=== PATIENT | female | born 1970 | race Hispanic/Latino ===

== ENCOUNTER 2023-03-25 12:16 | Emergency (ER) | payer SELFPAY ==
[2023-03-25] VITALS (8 sets, daily range): BP systolic 76–153; BP diastolic 56–119; PULSE 56; RESP 18; TEMP 36; O2SAT 87–100
--- NOTE | ~2023-03-25 | CT_ITS ---
EXAMINATION: CT abdomen pelvis w con DATE: 03/25/2023 14:53 INDICATION: Left abdominal pain. TECHNIQUE: Computed tomography (CT) of the abdomen and pelvis was performed with 100 mL Omnipaque 350 intravenous contrast. Automated exposure control and iterative reconstruction technique were employe d. The dose-length product was 403.01 mGy-cm. COMPARISON: None. FINDINGS: The visualized portions of the lung bases demonstrate minimal atelectasis. No pleural effus ion. The heart size is normal. No pericardial effusion. The liver, gallbladder, spleen, pancreas, adr enal glands, and kidneys are normal. There are no dilated loops of bowel. The appendix is not visuali zed. There are no pathologically enlarged lymph nodes. There is no free intraperitoneal fluid. There are chronic bilateral L5 pars defects. There is mild chronic anterior wedging of T10, T11, and T12 vertebral bodies. IMPRESSION: 1. No etiology for the patient's symptoms. Reviewed, dictated and finalized at location A.
[2023-03-25 14:02] LABS: Basophils Absolute Auto 0.1 K/mm3 (0.0-0.1); Eosinophils Absolute Auto 0.2 K/mm3 (0-0.3); Eosinophils Percent Auto 4.7 % (0-4.4); Hematocrit 40.8 % (37.0-47.0); Hemoglobin 13.2 g/dL (12.0-15.0); Lymphocytes Absolute Auto 1.97 K/mm3 (0.9-3.2); Lymphocytes Percent Auto 38.2 % (18.3-44.2); Mean Corpuscular HGB Conc 32.4 g/dl (32-36); Mean Corpuscular Hemoglobin 28.9 pg (26-34); Mean Corpuscular Volume 89.5 fl (80-100); Mean Platelet Volume 9.7 fl (7.4-10.4); Monocytes Absolute Auto 0.5 K/mm3 (0.1-0.6); Monocytes Percent Auto 9.5 % (2.6-8.5); Neutrophils Absolute Auto 2.4 K/mm3 (1.3-6.7); Neutrophils Percent Auto 46.6 % (45.5-73.1); Platelet Count Result 269 k/mm3 (150-375); Red Blood Count 4.56 M/mm3 (4.2-5.4); Red Cell Distribution Width 12.6 % (11.5-14.5); White Blood Count 5.2 K/mm3 (4.5-10.0)
[2023-03-25 14:12] LABS: Anion Gap 4 mmol/L (8-16); Carbon Dioxide 31 mmol/L (22-30); Chloride 104 mmol/L (98-107); Potassium 3.8 mmol/L (3.4-5.0); Sodium 139 mmol/L (137-145)
[2023-03-25 14:13] LABS: Alanine Aminotransferase 22 U/L (6-35); Albumin Level 4.5 g/dL (3.5-5.1); Alkaline Phosphatase 100 U/L (38-126); Aspartate Amino Transferase 29 U/L (14-36); Bilirubin,Total 0.5 mg/dL (0.2-1.3); Blood Urea Nitrogen 7 mg/dL (7-17); Calcium 9.2 mg/dL (8.4-10.2); Estimated CRCL calculation 99 ml/min; Estimated Glomerular Filt Rate > 60; Glucose 99 mg/dL (65-110); Lipase 86 U/L (23-300)
--- NOTE | 2023-03-25 14:13 | ECG_ITS ---
Measurements Intervals [place] Rate: 55 P: 34 SD: 141 QRS: 23 QRSD: 88 T: 37 QT: 449 QTc: 430 Interpretive Statements SINUS BRADYCARDIA CANNOT RULE OUT SEPTAL INFARCT, AGE INDETERMINATE ABNORMAL ECG NO PREVIOUS ECG AVAILABLE FOR COMPARISON Electronically Signed On 03-25-2023 14:27:44 CDT by Marshal Cooley D.O.
--- NOTE | 2023-03-25 14:25 | ED.GENADULT ---
HPI - General Adult General Chief complaint: Abdominal Pain Stated complaint: left side pain Time Seen by Provider: 03/25/23 12:58 Source: patient and manager it training Mode of arrival: ambulatory Limitations: no limitations History of Present Illness HPI narrative: This is a 53-year-old Lao-speaking female who presents to the ED with chief complaint of left upper quadrant pain beginning 3 days ago. She reports pain does not radiate. Denies flank pain. Denies any urinary symptoms. Reports it is worse in certain positions, states is very hard to lean or lie on the left side. She also reports some increased pain with breathing and exertion. Denies shortness of breath. Endorses occasional cough. Denies fevers, chills, LOC, headache. Reports abdominal surgical history of 3 different C-sections. She thinks that she may have her appendix out although she is unsure. Related Data Allergies Allergy/AdvReac Type Severity Reaction Status Date / Time No Known Allergies Allergy Mild Verified 03/25/23 12:38 Exam Narrative: GENERAL: Well-appearing, well-nourished, and in no acute distress. HEAD: Normocephalic, atraumatic. EYES: PERRLA and EOMI. ENT: Nares clear, no rhinorrhea or epistaxis. Mucous membranes moist. Oropharynx without tonsillar hypertrophy exudate or other lesions. NECK: Supple. No adenopathy or masses. CHEST: No respiratory distress. Clear to auscultation. No wheezes rales or rhonchi HEART: Regular rate and rhythm. No murmur heard. Normal peripheral pulses. ABDOMEN: Left upper and left lower quadrant tenderness present. Soft, nondistended, normal active bowel sounds. Negative Easley sign and negative McBurney's point. MSK: Normal range of motion. No edema. SKIN: Warm, dry, no rash. NEURO: Alert and oriented x3. No focal deficits. PSYCH: Normal mood and affect. Course Course Emergency Course: Reevaluation 1551: It is more evident that she has positional pain in that left side. She is tender in the left lower ribs and tenderness throughout the muscular distribution of the left flank. Less concern for any intra-abdominal or cardiopulmonary etiology Vital Signs Vital signs: Vital Signs Temperature 96.8 F L 03/25/23 12:31 Pulse Rate 56 L 03/25/23 12:31 Respiratory Rate 18 03/25/23 12:31 Blood Pressure 153/119 H 03/25/23 12:31 Pulse Oximetry 98 03/25/23 12:31 Oxygen Delivery Room Air 03/25/23 12:31 Temperature 96.8 F L 03/25/23 12:31 Pulse Rate 56 L 03/25/23 12:31 Respiratory Rate 18 03/25/23 12:31 Blood Pressure 127/66 03/25/23 15:02 Pulse Oximetry 99 03/25/23 15:02 Oxygen Delivery Room Air 03/25/23 12:31 Medical Decision Making MDM Narrative Medical decision making narrative: This is a 53-year-old female who presents to the ED with chief complaint of left side and abdominal pain x4 days. Vitals are normal. Exam shows tenderness throughout the left side of the abdomen and in the left ribs. She is resting comfortably. Labs are grossly unremarkable. UA negative. EKG shows normal sinus rhythm. No ischemic findings. Troponin negative. Wells score for PE is 0. CT scan shows chronic anterior wedging of T10, T11, T12 but she has no acute findings on her scan of the abdomen and pelvis. When I reevaluate her it is evident that this pain is more positional in nature and she is most tender in the ribs. She improved with IV morphine, Toradol, fluids here. I discussed that I feel that her symptoms are likely due to musculoskeletal etiology. She has a very repetitive packing job. She will be discharged in stable condition. Muscle relaxer prescription given. Encouraged to take Tylenol and ibuprofen for pain and inflammation. She is fully understanding of the plan via manager it training. Return precautions given and supportive measures were discussed. Vital Signs Vital Signs: Vital Signs Temperature 96.8 F L 03/25/23 12:31 Pulse Rate 56 L 03/25/23 12:31 Respirator
[2023-03-25] MEDS: SODIUM CHLORIDE 0.9% IV 1,000 ML 999 ML IV CONT (14:30)
[2023-03-25] MEDS: ONDANSETRON INJ 4 MG/2 ML VIAL IV PUSH (14:31)
[2023-03-25] MEDS: MORPHINE SULFATE (*CRX) 4 MG/ML INJ IV PUSH (14:31)
[2023-03-25 14:45] LABS: Appearance Urine Clear (Clear); Bilirubin Urine Negative (Negative); Blood Urine Negative (Negative); Color Urine Yellow (Yellow); Glucose Urine UA Negative (Negative); Ketones Urine Negative (Negative); Leukocyte Esterase Ur Negative LEU/UL (Negative); Nitrate Urine Negative (Negative); Protein Urine Negative (Negative); Specific Grav Ur 1.004 (1.001-1.035); Urobilinogen Urine 0.2 mg/dL (<2.0); pH Urine 7.5 (5.0-9.0)
[2023-03-25 14:53] LABS: Add Urine Microscopic? NO
[2023-03-25 15:07] LABS: Troponin I < 0.012 ng/mL (0.000-0.034)
[2023-03-25] MEDS: KETOROLAC 15 MG/ML VIAL (*BKC) IV PUSH (16:08)
== END 2023-03-25 16:32 | disposition home or self-care (01) ==
PROVIDERS: Emergency Medicine; Emergency Provider Physician Assistant; PCP Registered Nurse
DX: S39.011A Strain of muscle, fascia and tendon of abdomen, initial encounter (principal); R07.89 Other chest pain; R94.31 Abnormal electrocardiogram [ECG] [EKG]; R00.1 Bradycardia, unspecified; X58.XXXA Exposure to other specified factors, initial encounter
CPT/HCPCS: 36415; 74177; 80053; 81003; 83690; 84484; 85025; 93005; 96361; 96374; 96375; 99284; J1885; J2270; J2405; J7030; Q9967